=== PATIENT | female | born 1975 | race Caucasian/White ===

== ENCOUNTER → 2022-01-29 | Day surgery (SDC) | payer OTHER ==
[~2022-01-29] VITALS: Ht 162.6 cm; Wt 145.1 kg
[~2022-01-29] MED LIST: ACETAMINOPHEN500 M1 PO; LASIX20 MG PO; MOTRIN600 MG PO; PROTONIX 40MG T40 MG PO; TOPROL XL 50 MG50 MG PO; ULTRAM50 MG PO; WELLBUTRIN XL150 MG PO; ZYRTEC10 MG PO
[2022-01-29 07:58] LABS: HCG (URINE) SCREEN NEGATIVE (NEGATIVE)
[2022-01-29 08:04] LABS: HCT 38.4 % (37.0-47.0); HGB 12.6 g/dl (12.5-16.0); MCH 28.8 pg (25.0-31.0); MCHC 32.8 g/dL (32.0-36.0); MCV 87.9 fL (78.0-100.0); MPV 10.6 fL (6.0-9.5); RBC 4.37 M/uL (4.20-5.40); RDW 13.1 % (11.5-14.0)
[2022-01-29 08:22] LABS: BILIRUBIN - TOTAL 0.6 mg/dL (0.2-1.0); BUN/CREAT RATIO (CALC) 11.3 RATIO; CREATININE 0.97 mg/dL (0.51-0.95); GLOBULIN (CALCULATION) 3.8 g/dL; POTASSIUM 4.2 mmol/L (3.5-5.1); TOTAL PROTEIN 7.8 g/dL (6.4-8.2)
== END | disposition home or self-care (01) ==
LOC: FAS 07:35
PROVIDERS: Surgery
DX: Z12.11 Encounter for screening for malignant neoplasm of colon (principal); K29.50 Unspecified chronic gastritis without bleeding; K21.00 Gastro-esophageal reflux disease with esophagitis, without bleeding; K44.9 Diaphragmatic hernia without obstruction or gangrene; I10 Essential (primary) hypertension; Z80.0 Family history of malignant neoplasm of digestive organs; Z88.1 Allergy status to other antibiotic agents; Z88.5 Allergy status to narcotic agent
CPT/HCPCS: 43239; G0121; 36415; 80053; 84703; J2704

== ENCOUNTER 2022-01-31 08:12 | Emergency (ER) | payer OTHER ==
[~2022-01-31 08:12] MED LIST changes: -ULTRAM50 MG PO
[2022-01-31] MEDS ORDERED: ULTRAM50 MG PO (10:19)
== END 2022-01-31 10:38 | disposition home or self-care (01) ==
LOC: FER 08:12
DX: S93.402A Sprain of unspecified ligament of left ankle, initial encounter (principal); I10 Essential (primary) hypertension; Z79.899 Other long term (current) drug therapy; W01.0XXA Fall on same level from slipping, tripping and stumbling without subsequent striking against object, initial encounter; Y92.009 Unspecified place in unspecified non-institutional (private) residence as the place of occurrence of the external cause
CPT/HCPCS: 73610